=== PATIENT | male | born 1985 | race African-American/Black ===

== ENCOUNTER 2021-08-28 20:21 | Emergency (ER) | payer OTHER, SELFPAY | END 2021-08-28 23:37 | disposition left against medical advice (07) | PROVIDERS: Emergency Provider Emergency Medicine | DX: S61.459A Open bite of unspecified hand, initial encounter (principal); Y04.1XXA Assault by human bite, initial encounter; Y93.9 Activity, unspecified; Y92.9 Unspecified place or not applicable; Y99.0 Civilian activity done for income or pay ==

== ENCOUNTER 2021-08-29 08:52 | Emergency (ER) | payer OTHER, SELFPAY ==
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
[2021-08-29 10:58] VITALS: BP 147/104; PULSE 80; RESP 18; TEMP 37.1; O2SAT 99; BMI 28.3
[2021-08-29 11:02] VITALS: BP 147/101; PULSE 73; RESP 16; O2SAT 100
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
[2021-08-29] MEDS: Amoxicillin/Potassium Clav 875 MG TABLET PO (12:05)
[2021-08-29] MEDS: Diphth,Pertus(ACell),Tet Adult 0.5 ML SYRINGE IM (12:05)
== END 2021-08-29 12:12 | disposition home or self-care (01) ==
PROVIDERS: Emergency Provider Emergency Medicine; PCP Family Medicine
DX: S61.214A Laceration without foreign body of right ring finger without damage to nail, initial encounter (principal); S60.414A Abrasion of right ring finger, initial encounter; W50.3XXA Accidental bite by another person, initial encounter; Y93.9 Activity, unspecified; Y92.9 Unspecified place or not applicable; Y99.9 Unspecified external cause status
CPT/HCPCS: 73120; 90715; 96372; 99283; 99284

== ENCOUNTER 2022-10-31 13:28 | Outpatient (REF) | payer OTHER, SELFPAY ==
[2022-10-31 15:04] LABS: Alanine Aminotransferase 34 U/L (0-40); Albumin Level 3.9 g/dL (3.5-5.0); Alkaline Phosphatase 70 U/L (39-117); Anion Gap 9 (12-20); Aspartate Amino Transferase 26 U/L (5-37); Bilirubin Total 0.5 mg/dL (0.0-1.0); Blood Urea Nitrogen 8 mg/dL (9-16); Calcium 9.1 mg/dL (8.4-10.2); Carbon Dioxide 27 mmol/L (22-29); Chloride 107 mmol/L (96-108); Estimated Glomerular Filt Rate > 60; Glucose Random 87 mg/dL (60-115); Potassium 3.8 mmol/L (3.3-5.1); Sodium 139 mmol/L (135-145); Total Protein 8.6 g/dL (6.5-8.0)
== END 2022-10-31 13:29 | disposition home or self-care (01) ==
LOC: HO.CHCLDS 13:28
PROVIDERS: Visit Provider Family Medicine
DX: R74.01 Elevation of levels of liver transaminase levels (principal)
CPT/HCPCS: 36415; 80053

== ENCOUNTER 2023-05-10 09:02 | Outpatient (REF) | payer OTHER, SELFPAY ==
[2023-05-10 14:40] LABS: MANUAL DIFF FLAG NO
[2023-05-10 15:04] LABS: Alanine Aminotransferase 54 U/L (0-40); Alkaline Phosphatase 81 U/L (39-117); Anion Gap 11 (12-20); Aspartate Amino Transferase 28 U/L (5-37); Bilirubin Total 0.7 mg/dL (0.0-1.0); Blood Urea Nitrogen 9 mg/dL (9-16); Calcium 9.3 mg/dL (8.4-10.2); Carbon Dioxide 29 mmol/L (22-29); Chloride 103 mmol/L (96-108); Cholesterol 140 mg/dL (<200); Estimated Glomerular Filt Rate > 60; Glucose Random 87 mg/dL (60-115); HDL Cholesterol 50 mg/dL (>40); LDL Cholesterol Calculated 73 mg/dL (<100); Potassium 4.1 mmol/L (3.3-5.1); Sodium 139 mmol/L (135-145); Triglycerides 85 mg/dL (<150)
[2023-05-10 15:16] LABS: Basophils Percent Auto 0.6 % (0-2); Eosinophils Absolute Auto 0.1 X10*3/uL (0.0-0.4); Eosinophils Percent Auto 1.5 % (0-4); Hematocrit 44.4 % (42.0-52.0); Hemoglobin 14.4 g/dl (14.0-18.0); Imm Gran Abs Auto 0.01 X10*3/uL (0.00-0.03); Imm Gran Pct Auto 0.2 % (0.0-0.4); Lymphocytes Absolute Auto 2.6 X10*3/uL (1.2-4.9); Lymphocytes Percent Auto 49.7 % (20-40); Mean Corpuscular HGB Conc 32.4 g/dl (31.0-36.0); Mean Corpuscular Hemoglobin 30.7 pg (27.0-33.0); Mean Corpuscular Volume 94.7 fL (80.0-98.0); Mean Platelet Volume 9.8 fL (9.4-12.4); Monocytes Absolute Auto 0.8 X10*3/uL (0.1-1.2); Monocytes Percent Auto 14.5 % (2-11); Neutrophils Absolute Auto 1.8 x10*3/uL (2.0-8.3); Neutrophils Percent Auto 33.5 % (45-73); Platelet Count 228 X10*3/uL (160-400); Red Blood Count 4.69 X10*6/uL (4.60-5.80); White Blood Count 5.2 X10*3/uL (4.8-10.8)
[2023-05-10 15:26] LABS: Reflex LDLD? No
[2023-05-10 16:05] LABS: CT PCR NOT DETECTED (Not Detect.); NG PCR NOT DETECTED (Not Detect.)
[2023-05-11 11:58] LABS: Absolute CD3 Count 2352 cells/uL (840-3060); Absolute CD4 Count 252 cells/uL (490-1740); Absolute CD8 Count 2030 cells/uL (180-1170); Absolute Lymphocytes 2747 cells/uL (850-3900); CD4 CD8 Ratio 0.12 (0.86-5.00); Percent CD3 Cells 86 % (57-85); Percent CD4 Cells 9 % (30-61); Percent CD8 Cells 74 % (12-42)
[2023-05-12 10:08] LABS: RPR Rapid Plasma Reagin NON-REACTIVE (NON-REACTIVE)
[2023-05-12 15:18] LABS: HIV RNA PCR Qn Copies 70900 copies/mL (NOT DETECTED); HIV RNA PCR Qn Log Copies 4.85 (NOT DETECTED)
== END 2023-05-10 09:03 | disposition home or self-care (01) ==
LOC: HO.CHCLDS 09:02
PROVIDERS: Visit Provider Internal Medicine
DX: Z21 Asymptomatic human immunodeficiency virus [HIV] infection status (principal); Z13.6 Encounter for screening for cardiovascular disorders
CPT/HCPCS: 0353U; 36415; 80053; 80061; 85025; 86359; 86360; 86592; 87536